=== PATIENT | male | born 1935 | race Caucasian/White ===

== ENCOUNTER → 2017-04-25 | Outpatient (CLI) | payer OTHER | LOC: FIMAGING 07:33 | PROVIDERS: ATTEND Internal Medicine Hematology & Oncology | DX: N28.1 Cyst of kidney, acquired (principal); Z90.5 Acquired absence of kidney; Z85.46 Personal history of malignant neoplasm of prostate ==

== ENCOUNTER 2018-03-08 13:50 | Emergency (ER) | payer OTHER, MEDICARE ==
--- NOTE | 2018-03-08 14:08 | EDPHY ---
H & P Stated Complaint: Increased pain to mid chest with inspiration. Time Seen by Provider: 03/08/18 14:07 - Personal History Current Tetanus Diphtheria and Acellular Pertussis (TDAP): Unsure - Medical/Surgical History Hx Asthma: No Hx Chronic Respiratory Disease: No Hx Diabetes: No Hx Cardiac Disease: Yes Hx Renal Disease: Yes Hx Cirrhosis: No Hx Alcoholism: No Hx HIV/AIDS: No Hx Splenectomy or Spleen Trauma: No Other PMH: 1 x heart stent. Kidney cancer. - Social History Smoking Status: Never smoked Constitutional: Initial Vital Signs Temperature (C) 36.5 C 03/08/18 13:50 Heart Rate 79 03/08/18 13:50 Respiratory Rate 16 03/08/18 13:50 Blood Pressure 122/70 H 03/08/18 13:50 O2 Sat (%) 96 03/08/18 13:50 O2 Delivery Mode Room Air Allergies/Adverse Reactions: No Known Allergies Allergy (Verified 07/25/12 11:05) Home Medications: Medication Instructions Recorded Allopurinol [Allopurinol 300 MG 300 mg PO DAILY 07/24/12 (RX)] Rosuvastatin Calcium [Crestor 20mg 20 mg PO HS 07/24/12 (RX)] Multivitamins [Tab-A-Frank] 1 each PO DAILY 08/05/12 [employer] Completed 08/05/12 08/05/12 Medical Decision Making - Diagnostics Imaging: I viewed and interpreted images myself ED Course/Re-evaluation: CHIEF COMPLAINT: Pleuritic chest pain HISTORY OF PRESENT ILLNESS: The patient is an 82 y/o male with a remote history of a single coronary stent who arrives today at the referral of his tagman for evaluation of chest pain onset yesterday. His prior stent was placed after a period of high intensity activity. He's had no cardiac issues since then. Yesterday when he got off his bike after a long ride he noticed a dull pain across his sternum upon taking a deep breath. Today he has the same pain associated with every breath. He denies associated nausea, vomiting, diaphoresis, dyspnea, or any other complaints. No recent travel, though he does note he recently recovered from a mild respiratory illness. REVIEW OF SYSTEMS: A comprehensive 10 system review of systems is otherwise negative aside from elements mentioned in the history of present illness and medical decision making. PHYSICAL EXAM: HR, BP, O2 Sat, RR. Temp noted General Appearance: Alert, well hydrated, appropriate, and non-toxic appearing. Head: Atraumatic without scalp tenderness or obvious injury Eyes: Pupils equal, round, reactive to light and accommodation, EOMI, no trauma , no injection. Nose: Atraumatic, no rhinorrhea, clear. Throat: Mucus membranes moist. Neck: Supple, nontender, no lymphadenopathy. Respiratory: No retractions, no distress, no wheezes, and no accessory muscle use. Lungs are clear to auscultation bilaterally. Cardiovascular: Regular rate and rhythm, no murmurs, rubs, or gallops. Good capillary refill all extremities. Gastrointestinal: Abdomen is soft, nontender, non-distended, no masses, no rebound, no guarding, no peritoneal signs. Musculoskeletal: Normal active ROM of all extremities, atraumatic. Neurological: Alert, appropriate, and interactive. Nonfocal. Skin: No rashes, good turgor, no nodules on palpation. Past medical history: Kidney cancer - resolved; prostate cancer "low activity" Past surgical history: Coronary stent 15-20 years ago; nephrectomy Family history: Noncontributory Social history: Physically active, bikes regularly. Traveling to [place] next week. Conditioning Coach: Dr. Humphreys DIAGNOSTICS/PROCEDURES/CRITICAL CARE TIME: The 12 lead EKG was interpreted by myself. Sinus mechanism with a PAC. See hard copy and/or "tracemaster" electronic copy for interpretation. Chest x-ray: negative DIFFERENTIAL DIAGNOSIS: The differential diagnosis for the patient's chest pain included but was not limited to myocardial ischemia, pulmonary embolus, chest wall pain, pleural inflammation, and pulmonary infectious causes. MEDICAL DECISION MAKING: This is a well-appearing 82 y/o male with remote history of coronary stent who presents with a 1-day history of pleuritic chest pain following a high- intensity bike ride yesterday. His exam is unremarkable. Plan for standard cardiac work up including IV, labs with troponin and d-dimer, EKG, and chest x- ray. EKG and chest x-ray negative. Troponin is normal. Creatinine elevated at 1.9, but this is chronic for him. D- dimer negative. 1451: Consulted with Dr. Krause, cardiology. They will schedule with him for a nuclear stress test. Reassessed patient and discussed findings. He is comfortable with plan for discharge and follow up. Return precautions discussed. - Data Points Laboratory Results: Laboratory Results 03/08/18 14:10 03/08/18 14:10 03/08/18 03/08/18 03/08/18 14:12 14:10 14:10 WBC RBC Hgb Hct MCV MCH MCHC RDW Plt Count MPV Neut % (Auto) Lymph % (Auto) [place] % (Auto) Eos % (Auto) Baso % (Auto) Nucleat RBC Rel Count Absolute Neuts (auto) Absolute Lymphs (auto) Absolute Monos (auto) Absolute Eos (auto) Absolute Basos (auto) Absolute Nucleated RBC Immature Gran % Immature Gran # D-Dimer 0.49 ug/mLFEU ug/mLFEU (0.00-0.50) Sodium 140 mEq/L mEq/L (135-145) Potassium 4.4 mEq/L mEq/L (3.3-5.0) Chloride 105 mEq/L mEq/L (97-110) Carbon Dioxide 24 mEq/l mEq/l (22-31) Anion Gap 11 mEq/L mEq/L (8-16) BUN 28 mg/dL H mg/dL (7-23) Creatinine 1.9 mg/dL H mg/dL (0.7-1.3) Estimated GFR 34 Glucose 134 mg/dL H mg/dL (70-100) Calcium 9.1 mg/dL mg/dL (8.5-10.4) POC Troponin I 0.00 ng/mL ng/mL (0.00-0.08) 03/08/18 14:10 WBC 6.61 10^3/uL 10^3/uL (3.80-9.50) RBC 4.79 10^6/uL 10^6/uL (4.40-6.38) Hgb 15.3 g/dL g/dL (13.7-17.5) Hct 44.3 % % (40.0-51.0) MCV 92.5 fL fL (81.5-99.8) MCH 31.9 pg pg (27.9-34.1) MCHC 34.5 g/dL g/dL (32.4-36.7) RDW 13.0 % % (11.5-15.2) Plt Count 221 10^3/uL 10^3/uL (150-400) MPV 9.9 fL fL (8.7-11.7) Neut % (Auto) 55.9 % % (39.3-74.2) Lymph % (Auto) 33.7 % % (15.0-45.0) [place] % (Auto) 7.7 % % (4.5-13.0) Eos % (Auto) 2.0 % % (0.6-7.6) Baso % (Auto) 0.5 % % (0.3-1.7) Nucleat RBC Rel Count 0.0 % % (0.0-0.2) Absolute Neuts (auto) 3.70 10^3/uL 10^3/uL (1.70-6.50) Absolute Lymphs (auto) 2.23 10^3/uL 10^3/uL (1.00-3.00) Absolute Monos (auto) 0.51 10^3/uL 10^3/uL (0.30-0.80) Absolute Eos (auto) 0.13 10^3/uL 10^3/uL (0.03-0.40) Absolute Basos (auto) 0.03 10^3/uL 10^3/uL (0.02-0.10) Absolute Nucleated RBC 0.00 10^3/uL 10^3/uL (0-0.01) Immature Gran % 0.2 % % (0.0-1.1) Immature Gran # 0.01 10^3/uL 10^3/uL (0.00-0.10) D-Dimer Sodium Potassium Chloride Carbon Dioxide Anion Gap BUN Creatinine Estimated GFR Glucose Calcium POC Troponin I Point of Care Test Results: Chemistry 03/08/18 14:12 POC Troponin I 0.00 ng/mL ng/mL (0.00-0.08) Departure - Departure Disposition: Home, Routine, Self-Care Clinical Impression: Pleuritic chest pain Chronic kidney disease Qualifiers: Chronic kidney disease stage: unspecified stage Qualified Code(s): N18.9 - Chronic kidney disease, unspecified Condition: Good Instructions: Chest Pain (ED) Additional Instructions: Follow up with your tagman to schedule a nuclear stress test study. Please call today to arrange this. Return to the ED for any worsening of condition. Referrals: JI HARRISON [Other] - As per Instructions Stevie Humphreys MD [Medical Doctor] - As per Instructions Report Scribed for: Devonte Lara Report Scribed by: Harleen Nguyen Date of Report: 03/08/18 Time of Report: 14:15
[2018-03-08 14:20] LABS: PLATELET COUNT 221 10^3/uL (150-400)
--- NOTE | 2018-03-08 14:51 | CPEKG ---
Test Reason : OPEN Blood Pressure : / mmHG Vent. Rate : 069 BPM Atrial Rate : 071 BPM P-R Int : 165 ms QRS Dur : 098 ms QT Int : 415 ms P-R-T Axes : 045 -27 069 degrees QTc Int : 445 ms Sinus rhythm Atrial premature complex Borderline left axis deviation Confirmed by Devonte Lara ([id number]) on 03/08/2018 2:50:40 PM Referred By: Confirmed By:Devonte Lara
[2018-03-08 15:02] VITALS: BP 117/71
== END 2018-03-08 15:02 | disposition home or self-care (01) ==
DX: N18.9 Chronic kidney disease, unspecified (principal); R07.81 Pleurodynia
CPT/HCPCS: 84484-PO

== ENCOUNTER → 2018-05-08 | Outpatient (CLI) | payer OTHER, MEDICARE | LOC: BHFA 08:30 | PROVIDERS: ATTEND Internal Medicine Cardiovascular Disease | DX: I25.10 Atherosclerotic heart disease of native coronary artery without angina pectoris (principal) | CPT/HCPCS: 78452; 93017; A9500 ==